=== PATIENT | female | born 1980 | race Caucasian/White ===

== ENCOUNTER 2024-01-08 16:52 | Emergency (ER) | payer BC ==
[2024-01-08] MEDS: Diphtheria,Pertussis(Acell),Tetanus Vaccine 0.5 ML Syringe IM ONE (19:44)
== END 2024-01-08 19:50 | disposition home or self-care (01) ==
LOC: MW.ED 16:52
DX: S61.211A Laceration without foreign body of left index finger without damage to nail, initial encounter (principal); W26.8XXA Contact with other sharp object(s), not elsewhere classified, initial encounter; Z23 Encounter for immunization
CPT/HCPCS: 12001; 12002; 90471; 90715; 99282-25; 99283